=== PATIENT | female | born 1940 | race Caucasian/White ===

== ENCOUNTER 2017-05-18 19:41 | Emergency (ER) | payer SELFPAY ==
--- NOTE | 2017-05-18 20:05 | EDPHY ---
H & P Time Seen by Provider: 05/18/17 19:55 HPI/ROS: CHIEF COMPLAINT: Right elbow fracture HISTORY OF PRESENT ILLNESS: History obtained from the patient as well as both daughters through the quality liaison who is personally present in the room. She fell yesterday while trying to step up onto a curb and injured her right elbow and left knee. No loss of consciousness and no head injury. She had x-ray today which showed elbow fracture and presents to the ER for evaluation. No weakness or numbness in the right hand. 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 PAST MEDICAL HISTORY: Includes high cholesterol, diabetes, hypertension. Social history: Speaks Arabic, history with quality liaison General Appearance: Alert and conversant, cooperative. Eyes: No scleral icterus. ENT, Mouth: Normal mucous membranes. Respiratory: Normal respiratory effort, breath sounds equal, lungs are clear to auscultation. Cardiovascular: Regular rate and rhythm. Gastrointestinal: Abdomen is soft and non tender. Neurological: Alert, follows commands, sits up in the bed, ambulatory on transfer. Face symmetric, normal movement and sensation in all extremities. Skin: No laceration or abrasion over the right elbow. Bilateral knee abrasions. Musculoskeletal: No spinal tenderness. She has right elbow swelling and tenderness held at 90 degrees but no wrist or hand tenderness. Upper extremity on the left side is normal. Both lower extremities show normal range of motion of hips and knees and ankles. No patellar or knee joint tenderness or bony tenderness in either lower extremity. Psychiatric: Not agitated. Emergency Department course/MDM: Patient presents with right supracondylar elbow fracture which is closed. She appears neurovascularly intact. Orthopedic consultation, she does not appear to require imaging of either knee. 2011: Discussed with Dr. Chakraborty, splint and office followup. Results and plan discussed with patient and daughters with quality liaison, they can make an appointment tomorrow as requested by Dr. Chakraborty to discuss treatment options. Smoking Status: Never smoked Constitutional: Initial Vital Signs Temperature (C) 36.7 C 05/18/17 19:42 Heart Rate 73 05/18/17 19:42 Respiratory Rate 14 05/18/17 19:42 Blood Pressure 142/73 H 05/18/17 19:42 O2 Sat (%) 96 05/18/17 19:42 O2 Delivery Mode Room Air Allergies/Adverse Reactions: No Known Allergies Allergy (Unverified 08/12/10 20:39) Home Medications: Medication Instructions Recorded Metoprolol 100 mg PO 08/08/10 METFORMIN HCL 500 mg 08/30/10 Simvastatin [Zocor 20 mg (RX)] 20 mg PO DAILY18 07/17/12 Amlodipine Besylate 05/18/17 Losartan Potassium 05/18/17 Mirtazapine 05/18/17 Multivitamin/Ferrous Sulfate 05/18/17 Medical Decision Making - Diagnostics Imaging Results: Imaging Impressions Elbow X-Ray 05/18/17 19:18 Impression: Displaced supracondylar fracture. I attempted to call Dr. Corona but the office was closed at 7:46 PM. The patient was sent to the emergency room. Procedures: Procedure: Splint placement. A right arm posterior Ortho Glass splint was applied. After application of the splint I returned and re-examined the patient. The splint was adequately immobilizing the joint and distal to the splint the patient's circulation and sensation was intact. - Data Points Medications Given: Discontinued Medications Hydrocodone Bitart/Acetaminophen ([place] 5/325) 1 tab PO EDNOW ONE Stop: 05/18/17 20:09 Last Admin: 05/18/17 20:10 Dose: 1 tab Departure - Departure Disposition: Home, Routine, Self-Care Clinical Impression: Fracture, supracondylar, elbow, right, closed Qualifiers: Encounter type: initial encounter Qualified Code(s): S42.411A - Displaced simple supracondylar fracture without intercondylar fracture of right humerus, initial encounter for closed fracture Condition: Good Instructions: Hydrocodone/Acetaminophen (By mouth), Elbow Fracture (ED) Referrals: Sherine Corona [Primary Care Provider] - As per Instructions Irineo Chakraborty MD [Medical Doctor] - 05/19/17 (call tomorrow for ortho office followup to discuss options with Dr. Chakraborty in the [place] office)
[2017-05-18] MEDS ORDERED: HYDROCODONE/APAP 5/325 TAB ONE (20:07)
[2017-05-18] MEDS ORDERED: HYDROCODONE/APAP 5/325 TAB PO ONE (20:08)
[2017-05-18] MEDS ORDERED: HYDROCOD/APAP 5/325 PREPACK#6 BTL TAKEHOME ONE (20:17)
[2017-05-18 21:03] VITALS: BP 132/69; PULSE 71; RESP 16; TEMP 97.9; O2SAT 95
== END 2017-05-18 21:03 | disposition home or self-care (01) ==
LOC: EDSTATUS 19:41
PROC: 2W38X1Z Immobilization of Right Upper Extremity using Splint (ICD-10-PCS; principal; 2017-05-18)
DX: S42.411A Displaced simple supracondylar fracture without intercondylar fracture of right humerus, initial encounter for closed fracture (principal); E11.9 Type 2 diabetes mellitus without complications; I10 Essential (primary) hypertension; Z79.84 Long term (current) use of oral hypoglycemic drugs; W18.39XA Other fall on same level, initial encounter; Y99.8 Other external cause status